=== PATIENT | female | born 1980 | race Caucasian/White ===

== ENCOUNTER 2016-06-20 00:21 | Emergency (ER) | payer MEDICAID ==
[2016-06-20 00:30] VITALS: TEMP 97.2
--- NOTE | 2016-06-20 00:41 | CPEKG ---
Heart Rate: 56 RR Interval: 1071 P-R Interval: 136 QRSD Interval: 106 QT Interval: 436 QTC Interval: 421 P Fenwick: 53 QRS Fenwick: 80 T Wave Fenwick: 34 EKG Severity - ABNORMAL ECG - EKG Impression: SINUS RHYTHM EKG Impression: INCOMPLETE RIGHT BUNDLE BRANCH BLOCK Electronically Signed By: Walter Connell 25-Jun-2016 16:39:24
[2016-06-20] MEDS ORDERED: NS 1,000 ML IV ONE (00:44)
--- NOTE | 2016-06-20 00:44 | EDPHY ---
H & P Stated Complaint: syncope, subsequent CP, CARMICHAEL HPI/ROS: HPI CHIEF COMPLAINT: Syncope HISTORY OF PRESENT ILLNESS: This patient very pleasant 36-year-old female she denies having any significant medical history she does not take any daily medications, and has no history of cardiac or neurological illness, she presents emergency room by private vehicle with a friend after she had a syncopal episode at a concert. According to the patient and friend they were at a concert this evening it started 7:00 p.m. and she was up in the [facility] she was standing against the railing for approximately 5 hours. Her friend noticed that she was staring off into space and then started to slump backwards she did have a positive LOC with a witnessed syncopal episode. There was no seizure activity witnessed there is no postictal state. She did not have any bowel or bladder incontinence. She did lay flat on the ground somebody caught her when she fell however there may have been a head strike against the ground. The whole episode lasted approximately 2-3 minutes. A bystander decided to start to do CPR on her however according to her friend who witnessed the event the bystander pressed on her stomach doing CPR. The patient woke up in push the patient's arm out of the way he was pressing on her stomach. She was able to stand up with assistance and then walked out of the concert venue. He got into the car and drove here. This event happened approximately an hour and 20 minutes ago. Currently here in the emergency room her complaint is a posterior headache from most likely head strike, also complaining of anterior chest wall pain. Unclear if somebody did CPR on her chest wall. No abdominal pain. She does admit to nausea. She denies focal weakness numbness or tingling. Denies pleuritic pain. Denies recent illness. No fever. Tells me that her only complaint right now is a dull posterior headache. She tells me feels pain on the surface of her head. She has no history of syncope. No history of cardiac issue. No history of stroke. She does tell me she breathes prior to going to the [facility], also tells me that she was drinking water. Past Medical History:No significant medical history Past Surgical History: multiple orthopedic surgeries, Social History:Denies use of drugs tonight, alcohol tonight, illicit substance or tobacco products. Family History: Noncontributory ROS REVIEW OF SYSTEMS: A comprehensive 10 point review of systems is otherwise negative aside from elements mentioned in the history of present illness. Exam Constitutional appears well nontoxic, triage nursing summary reviewed, vital signs reviewed, awake/alert. Eyes normal conjunctivae and sclera, EOMI, PERRLA. HENT normal inspection, atraumatic, moist mucus membranes, no epistaxis, neck supple/ no meningismus, no raccoon eyes. Respiratory clear to auscultation bilaterally, normal breath sounds, no respiratory distress, no wheezing. Cardiovascular rate normal, regular rhythm, no murmur, no edema, distal pulses normal. Gastrointestinal soft, non-tender, no rebound, no guarding, normal bowel sounds, no distension, no pulsatile mass. Genitourinary no CVA tenderness. Musculoskeletal no midline vertebral tenderness, full range of motion, no calf swelling, no tenderness of extremities, no meningismus, good pulses, neurovascularly intact. Skin pink, warm, & dry, no rash, skin atraumatic. Neurologic awake, alert and oriented x 3, AAOx3, moves all 4 extremities equally, motor intact, sensory intact, CN II-XII intact, normal cerebellar, normal vision, normal speech. Psychiatric normal mood/affect. Heme/Lymph/Immune no lymphadenopathy. Differential Diagnosis: Includes but is not limited to in a particular order vasovagal syncope, orthostatic syncope, dehydration, electrolyte abnormality, cardiac arrhythmia, intracranial injury, trauma to the head, trauma to the chest wall, pulmonary embolism Medical Decision Making: Plan for this patient be placed on full chinese instructor, IV will be established, she received IV fluid bolus, will obtain EKG, chest x-ray, shot a CT scan of her head to rule out significant trauma, check blood work including electrolytes she will be gently hydrated with IV fluids 1 L normal saline, IV Zofran 4 mg for nausea. Will watch closely on chinese instructor and re-evaluate her. Re-evaluation: EKG interpretation by me on record in [employer] system. Impression time of EKG is 0038: this EKG is sinus rhythm rate of 56, I do not appreciate any signs of cardiac arrhythmia, significant ischemic changes specifically no ST elevation, ST depression, T-wave abnormalities. CT scan of the head without IV contrast. The results of the study are negative for acute traumatic injury The study was read by Dr. Crawford. I viewed the images myself on the PACS system. ED x-ray chest one view: Negative for acute cardiopulmonary disease. Image interpreted by myself. 0243: Re-examination at this time patient is resting comfortably. She has no chest pain or shortness of breath no headache. She states her nausea has resolved. Her workup for syncope here in the emergency room includes a normal EKG nonischemic, negative troponin, negative D-dimer, normal CT scan of her head , chest x-ray and blood work. She ambulated well throughout the emergency room without difficulty p.o. challenge. She is requesting be discharged home. Vital signs are reviewed and are normal. She does understand if she gets home and has another syncopal episode developed severe chest pain shortness of breath she needs to seek medical attention return to the ER. Source: Patient - Personal History LMP (Females 10-55): 15-21 Days Ago Current Tetanus/Diphtheria Vaccine: Yes Current Tetanus Diphtheria and Acellular Pertussis (TDAP): Yes Tetanus Vaccine Date: < 10 years - Medical/Surgical History Hx Asthma: No Hx Chronic Respiratory Disease: No Hx Diabetes: No Hx Cardiac Disease: No Hx Renal Disease: No Hx Cirrhosis: No Hx Alcoholism: No Hx HIV/AIDS: No Hx Splenectomy or Spleen Trauma: No Other PMH: osteopenia, kidney stones, laparoscopy & hysteroscopy, R shoulder surgery x2, R knee surgery, "inflamed appendix" no surgery - Social History Smoking Status: Never smoked Constitutional: Initial Vital Signs Temperature (C) 36.2 C 06/20/16 00:27 Heart Rate 64 06/20/16 00:27 Respiratory Rate 16 06/20/16 00:27 Blood Pressure 107/66 06/20/16 00:27 O2 Sat (%) 98 06/20/16 00:27 O2 Delivery Mode Room Air O2 (L/minute) 2 Allergies/Adverse Reactions: erythromycin base [Erythromycin Base] Allergy (Unknown, Verified 07/08/15 10:52) Home Medications: Medication Instructions Recorded NK [No Known Home Meds] 06/20/16 Medical Decision Making - Data Points Laboratory Results: Laboratory Results 06/20/16 00:39 06/20/16 00:39 06/20/16 06/20/16 06/20/16 00:39 00:39 00:39 WBC RBC Hgb Hct MCV MCH MCHC RDW Plt Count MPV Neut % (Auto) Lymph % (Auto) Davison % (Auto) Eos % (Auto) Baso % (Auto) Nucleat RBC Rel Count Absolute Neuts (auto) Absolute Lymphs (auto) Absolute Monos (auto) Absolute Eos (auto) Absolute Basos (auto) Absolute Nucleated RBC Immature Gran % Immature Gran # PT 13.7 SEC SEC (12.0-15.0) INR 1.06 (0.83-1.16) APTT 26.6 SEC SEC (23.0-38.0) D-Dimer < 0.27 ug/mLFEU ug/mLFEU (0.00-0.50) Sodium 144 mEq/L mEq/L (134-144) Potassium 4.0 mEq/L mEq/L (3.5-5.2) Chloride 104 mEq/L mEq/L (97-110) Carbon Dioxide 26 mEq/l mEq/l (22-31) Anion Gap 14 mEq/L mEq/L (8-16) BUN 22 mg/dL mg/dL (7-23) Creatinine 0.8 mg/dL mg/dL (0.6-1.0) Estimated GFR > 60 Glucose 101 mg/dL H mg/dL (70-100) Calcium 9.7 mg/dL mg/dL (8.5-10.4) Magnesium 2.1 mg/dL mg/dL (1.6-2.3) Total Bilirubin 0.6 mg/dL mg/dL (0.1-1.4) Conjugated Bilirubin 0.3 mg/dL mg/dL (0.0-0.5) Unconjugated Bilirubin 0.3 mg/dL mg/dL (0.0-1.1) AST 18 IU/L IU/L (14-46) ALT 27 IU/L IU/L (9-52) Alkaline Phosphatase 56 IU/L IU/L (38-126) Creatine Kinase 27 IU/L IU/L (0-156) CK-MB (CK-2) Fraction 0.32 ng/mL ng/mL (0-3.19) Troponin I < 0.012 ng/mL ng/mL (0-0.034) NT-Pro-B Natriuret Pep 56 pg/mL pg/mL (0-125) Total Protein 8.0 g/dL g/dL (6.3-8.2) Albumin 4.9 g/dL g/dL (3.5-5.0) Lipase 139.0 IU/L IU/L (23-300) Beta HCG, Qual NEGATIVE 06/20/16 00:39 WBC 9.14 10^3/uL 10^3/uL (3.80-9.50) RBC 4.87 10^6/uL 10^6/uL (4.18-5.33) Hgb 15.0 g/dL g/dL (12.6-16.3) Hct 44.1 % % (38.0-47.0) MCV 90.6 fL fL (81.5-99.8) MCH 30.8 pg pg (27.9-34.1) MCHC 34.0 g/dL g/dL (32.4-36.7) RDW 13.2 % % (11.5-15.2) Plt Count 290 10^3/uL 10^3/uL (150-400) MPV 9.6 fL fL (8.7-11.7) Neut % (Auto) 66.3 % % (39.3-74.2) Lymph % (Auto) 25.3 % % (15.0-45.0) Davison % (Auto) 6.7 % % (4.5-13.0) Eos % (Auto) 0.9 % % (0.6-7.6) Baso % (Auto) 0.3 % % (0.3-1.7) Nucleat RBC Rel Count 0.0 % % (0.0-0.2) Absolute Neuts (auto) 6.06 10^3/uL 10^3/uL (1.70-6.50) Absolute Lymphs (auto) 2.31 10^3/uL 10^3/uL (1.00-3.00) Absolute Monos (auto) 0.61 10^3/uL 10^3/uL (0.30-0.80) Absolute Eos (auto) 0.08 10^3/uL 10^3/uL (0.03-0.40) Absolute Basos (auto) 0.03 10^3/uL 10^3/uL (0.02-0.10) Absolute Nucleated RBC 0.00 10^3/uL 10^3/uL (0-0.01) Immature Gran % 0.5 % % (0.0-1.1) Immature Gran # 0.05 10^3/uL 10^3/uL (0.00-0.10) PT INR APTT D-Dimer Sodium Potassium Chloride Carbon Dioxide Anion Gap BUN Creatinine Estimated GFR Glucose Calcium Magnesium Total Bilirubin Conjugated Bilirubin Unconjugated Bilirubin AST ALT Alkaline Phosphatase Creatine Kinase CK-MB (CK-2) Fraction Troponin I NT-Pro-B Natriuret Pep Total Protein Albumin Lipase Beta HCG, Qual Medications Given: Discontinued Medications Sodium Chloride (Ns) 1,000 mls @ 0 mls/hr IV ONCE ONE PRN Reason: Wide Open Stop: 06/20/16 00:45 Last Admin: 06/20/16 00:45 Dose: 1,000 mls Ondansetron HCl (Zofran) 4 mg IVP EDNOW ONE Stop: 06/20/16 00:54 Last Admin: 06/20/16 01:18 Dose: 4 mg Departure - Departure Disposition: Home, Routine, Self-Care Clinical Impression: Syncope Qualifiers: Syncope type: unspecified Qualified Code(s): R55 - Syncope and collapse Condition: Good Instructions: Syncope (ED) Additional Instructions: 1. stay well-hydrated 2. return to the emergency room if develops any worsening symptoms questions or concerns. Please return emergency room if developed chest pain shortness of breath severe headache or pass out. Referrals: NONE *PRIMARY CARE P,. [Primary Care Provider] - As per Instructions
[2016-06-20] MEDS ORDERED: ONDANSETRON 4 MG/2 ML VIAL IVP ONE (00:53)
[2016-06-20 00:59] LABS: % IMMATURE GRANULYOCYTES 0.5 % (0.0-1.1); ABSOLUTE IMMATURE GRANULOCYTES 0.05 10^3/uL (0.00-0.10); ADD DIFF? NO; ADD MORPH? NO; ADD SCAN? NO; ATYPICAL LYMPHOCYTE FLAG 10 (0-99); FRAGMENT RBC FLAG 0 (0-99); HEMATOCRIT 44.1 % (38.0-47.0); LEFT SHIFT FLG 0 (0-99); LIPEMIA HEMOLYSIS FLAG 90 (0-99); MEAN CELL HEMOGLOBIN 30.8 pg (27.9-34.1); MEAN CELL VOLUME 90.6 fL (81.5-99.8); MEAN PLATELET VOLUME 9.6 fL (8.7-11.7); PLATELET CLUMPS FLAG 0 (0-99); PLATELET COUNT 290 10^3/uL (150-400); RED BLOOD CELL COUNT 4.87 10^6/uL (4.18-5.33); RED CELL DISTRIBUTION WIDTH 13.2 % (11.5-15.2)
[2016-06-20 01:13] LABS: INR 1.06 (0.83-1.16); PROTIME(PATIENT) 13.7 SEC (12.0-15.0)
[2016-06-20 01:14] LABS: APTT 26.6 SEC (23.0-38.0)
[2016-06-20 01:15] LABS: ALANINE AMINOTRANSFERASE 27 IU/L (9-52); ALBUMIN 4.9 g/dL (3.5-5.0); ALKALINE PHOSPHATASE 56 IU/L (38-126); ANION GAP 14 mEq/L (8-16); ASPARTATE AMINOTRANSFERASE 18 IU/L (14-46); BILIRUBIN,TOTAL 0.6 mg/dL (0.1-1.4); BILIRUBIN-CONJUGATED 0.3 mg/dL (0.0-0.5); BILIRUBIN-UNCONJUGATED 0.3 mg/dL (0.0-1.1); CALCIUM 9.7 mg/dL (8.5-10.4); CARBON DIOXIDE 26 mEq/l (22-31); CHLORIDE 104 mEq/L (97-110); CREATININE 0.8 mg/dL (0.6-1.0); GLOMERULAR FILTRATION RATE > 60; GLUCOSE 101 mg/dL (70-100); MAGNESIUM 2.1 mg/dL (1.6-2.3); SODIUM 144 mEq/L (134-144)
[2016-06-20 01:24] LABS: CREATINE KINASE-MB FRACTION 0.32 ng/mL (0-3.19)
[2016-06-20 01:44] LABS: TROPONIN I < 0.012 ng/mL (0-0.034)
[2016-06-20 02:03] VITALS: O2SAT 97
[2016-06-20 02:51] VITALS: BP 101/57; PULSE 72; RESP 16
== END 2016-06-20 02:52 | disposition home or self-care (01) ==
DX: R55 Syncope and collapse (principal)
CPT/HCPCS: 96374; J2405